=== PATIENT | female | born 1990 | race Two or more races ===

== ENCOUNTER 2020-06-13 17:58 | Inpatient (IN) | payer OTHER ==
[~2020-06-13] VITALS: Ht 172.7 cm; Wt 78.5 kg
[2020-06-13] MEDS ORDERED: LIDOCAINE 1%, 20ML ONE (18:19)
[2020-06-13] MEDS ORDERED: NEWBORN KIT ONE (18:19)
[2020-06-13] MEDS ORDERED: MISOPROSTOL 200 MCG TABLET ONE (18:20)
[2020-06-13] MEDS ORDERED: OXYTOCIN 30U/ 0.9% NaCL 500ML 500 ML ONE (18:20)
[2020-06-13] MEDS ORDERED: ONDANSETRON 2MG/ML, 2ML IVPush PRN ×2 (18:30→23:00)
[2020-06-13] MEDS ORDERED: TERBUTALINE 1 MG/ML, 1ML IVPush PRN (18:30)
[2020-06-13] MEDS ORDERED: OXYTOCIN 30U/ 0.9% NaCL 500ML 500 ML IV ONE (18:30)
[2020-06-13] MEDS ORDERED: SODIUM CITRATE/CITRIC ACID 30 ML UDC PO PRN (18:30)
[2020-06-13] MEDS ORDERED: CALCIUM CARBONATE 500 MG TAB.CHEW PO PRN (18:30)
[2020-06-13] MEDS: D5%-LACTATED RINGERS 1,000 ML IV SCH (18:30)
[2020-06-13] MEDS ORDERED: TERBUTALINE 1 MG/ML, 1ML SQ PRN (18:30)
[2020-06-13] MEDS ORDERED: FENTANYL PF 100 MCG/2ML IV PRN (18:30)
[2020-06-13] MEDS ORDERED: OXYTOCIN 30U/ 0.9% NaCL 500ML 500 ML IV PRN (18:30)
[2020-06-13] MEDS ORDERED: METOCLOPRAMIDE 5 MG/ML, 2ML IVPush PRN (18:30)
[2020-06-13 18:42] VITALS: BP 137/90
[2020-06-13 18:59] LABS: BASOPHILS % (AUTO) 1 % (0-1); EOSINOPHILS % (AUTO) 0 % (1-7); LYMPHOCYTES % (AUTO) 5 % (22-44); MEAN CORPUSCULAR HEMOGLOBIN 28.9 pg (27.0-34.8); MEAN CORPUSCULAR HGB CONC 33.7 g/dL (32.4-35.8); MEAN PLATELET VOLUME 8.3 fL (7.4-10.4); MONOCYTES % (AUTO) 3 % (2-9); NEUTROPHILS % (AUTO) 91 % (42-75); PLATELET COUNT 253 x10^3/uL (130-400); RED CELL DISTRIBUTION WIDTH 12.9 % (9.6-15.2)
[2020-06-13] MEDS ORDERED: PLEASE ENTER HEIGHT AND WEIGHT MC SCH (19:00)
[2020-06-13 19:20] LABS: MD SCAN
[2020-06-13] MEDS ORDERED: ONDANSETRON 2MG/ML, 2ML ONE (19:55)
[2020-06-13] MEDS ORDERED: FENTANYL PF 100 MCG/2ML ONE ×3 (19:55→22:07)
[2020-06-13] MEDS: FENTANYL PF 100 MCG/2ML IVPush PRN ×2 (19:59→21:14)
[2020-06-13] MEDS: LACTATED RINGERS 1,000 ML IV SCH (21:16)
[2020-06-13] MEDS: LACTATED RINGERS 1,000 ML IVBOLUS PRN ×2 (21:17→21:45)
[2020-06-13] MEDS ORDERED: FENTANYL/BUPIV./NS/PF 250 ML EPIDCONT ONE (22:07)
[2020-06-13] MEDS ORDERED: BUPIVACAINE 0.25% ONE (22:07)
[2020-06-13] MEDS ORDERED: FENTANYL/BUPIV./NS/PF 250 ML EPIDCONT SCH (23:00)
[2020-06-13] MEDS ORDERED: EPHEDRINE 50 MG/ML, 1ML IVPush PRN (23:00)
[2020-06-13] MEDS ORDERED: SODIUM CITRATE/CITRIC ACID 15 ML UDC ONE (23:36)
[2020-06-14] MEDS ORDERED: EPHEDRINE 50 MG/ML, 1ML ONE (00:31)
[2020-06-14] MEDS: LACTATED RINGERS 1,000 ML IV SCH ×4 (01:07→10:30)
[2020-06-14] MEDS: D5%-LACTATED RINGERS 1,000 ML IV SCH ×2 (02:30→10:30)
[2020-06-14] MEDS ORDERED: OXYcodone/APAP 5/325MG TABLET PO PRN (09:00)
[2020-06-14] MEDS ORDERED: DIPH,PERTUSS(ACELL),TET VAC/PF NC IM-VACC PRN (09:00)
[2020-06-14] MEDS ORDERED: METHYLERGONOVINE 0.2 MG/ML IM PRN (09:00)
[2020-06-14] MEDS ORDERED: ACETAMINOPHEN 325 MG TABLET PO PRN (09:00)
[2020-06-14] MEDS ORDERED: CARBOPROST TROMETHAMINE 250 MCG/ML, 1ML IM PRN (09:00)
[2020-06-14] MEDS: OXYTOCIN 30U/ 0.9% NaCL 500ML 500 ML IV SCH ×2 (09:00→09:30)
[2020-06-14] MEDS ORDERED: MISOPROSTOL 200 MCG TABLET PR PRN (09:00)
[2020-06-14] MEDS ORDERED: DOCUSATE 100 MG CAPSULE PO PRN (09:00)
[2020-06-14] MEDS ORDERED: SIMETHICONE 80 MG CHEW TAB PO PRN (09:00)
[2020-06-14] MEDS: IBUPROFEN 600 MG TABLET PO PRN ×3 (09:30→21:25)
[2020-06-14] MEDS ORDERED: IBUPROFEN 600 MG TABLET ONE (09:35)
[2020-06-14] MEDS ORDERED: OXYTOCIN 30U/ 0.9% NaCL 500ML 500 ML ONE (09:35)
[2020-06-14 11:40] VITALS: BP 112/70
[2020-06-14] MEDS: PRENATAL VIT/IRON/FA 1 EACH TABLET PO SCH (13:23)
[2020-06-14 16:08] VITALS: BP 99/64
[2020-06-14] MEDS: OXYcodone/APAP 5/325MG TABLET PO PRN ×2 (17:13→21:26)
[2020-06-14 17:14] LABS: BASOPHILS % (AUTO) 0 % (0-1); EOSINOPHILS % (AUTO) 0 % (1-7); LYMPHOCYTES % (AUTO) 9 % (22-44); MEAN CORPUSCULAR HEMOGLOBIN 29.6 pg (27.0-34.8); MEAN CORPUSCULAR HGB CONC 34.2 g/dL (32.4-35.8); MEAN PLATELET VOLUME 8.4 fL (7.4-10.4); MONOCYTES % (AUTO) 7 % (2-9); NEUTROPHILS % (AUTO) 84 % (42-75); PLATELET COUNT 222 x10^3/uL (130-400); RED BLOOD COUNT 3.29 x10^6/uL (3.82-5.3); RED CELL DISTRIBUTION WIDTH 13.1 % (9.6-15.2)
[2020-06-14 17:16] LABS: MD NO
[2020-06-14 20:00] VITALS: BP 99/66
[2020-06-15] VITALS: BP 101/66
[2020-06-15] MEDS: OXYcodone/APAP 5/325MG TABLET PO PRN ×2 (02:08→07:33)
[2020-06-15] MEDS: IBUPROFEN 600 MG TABLET PO PRN ×2 (03:44→10:19)
[2020-06-15 03:48] VITALS: BP 96/63
[2020-06-15] MEDS: PRENATAL VIT/IRON/FA 1 EACH TABLET PO SCH (07:33)
[2020-06-15 07:55] VITALS: BP 97/62
[2020-06-15] MEDS ORDERED: IBUP-1223 PO (08:21)
[2020-06-15] MEDS ORDERED: DOCU100C33 PO (08:22)
[2020-06-15] MEDS ORDERED: OXYC-302 PO (08:22)
== END 2020-06-15 15:05 | disposition home or self-care (01) | DRG 807 ==
LOC: LDOP 17:58 → LDIP 18:11 → 2NW 06-14 11:11
PROVIDERS: ADMIT Obstetrics & Gynecology Maternal & Fetal Medicine; ATTEND Obstetrics & Gynecology Maternal & Fetal Medicine
PROC: 3E0R3BZ Introduction of Anesthetic Agent into Spinal Canal, Percutaneous Approach (ICD-10-PCS; 2020-06-13)
PROC: 00HU33Z Insertion of Infusion Device into Spinal Canal, Percutaneous Approach (ICD-10-PCS; 2020-06-13)
PROC: 10E0XZZ Delivery of Products of Conception, External Approach (ICD-10-PCS; principal; 2020-06-14)
PROC: 0UQMXZZ Repair Vulva, External Approach (ICD-10-PCS; 2020-06-14)
DX: O69.81X0 Labor and delivery complicated by cord around neck, without compression, not applicable or unspecified (principal); Z37.0 Single live birth; O71.82 Other specified trauma to perineum and vulva; Z23 Encounter for immunization; Z3A.37 37 weeks gestation of pregnancy; Z3A.38 38 weeks gestation of pregnancy; Z20.828 Contact with and (suspected) exposure to other viral communicable diseases
CPT/HCPCS: 36415; 85025; 86592; 86850; 86900; 87635; G0378; J2405; J3010; J2590; J7120